=== PATIENT | male | born 1955 | race Caucasian/White ===

== ENCOUNTER → 2016-10-28 | Outpatient (CLI) | payer BC ==
[2016-10-28 08:30] LABS: CHLORIDE,CL 109 mmol/L (98-110); SODIUM,NA 140 mmol/L (136-146)
== END ==
LOC: MW.CHFP 07:42
PROVIDERS: ATTEND Student in an Organized Health Care Education/Training Program
DX: I10 Essential (primary) hypertension (principal); E78.00 Pure hypercholesterolemia, unspecified
CPT/HCPCS: 36415; 80053; 80061

== ENCOUNTER 2020-11-25 19:09 | Observation (INO) | payer BC, OTHER ==
[2020-11-25] MEDS ORDERED: Ondansetron 4 MG Tab.DIS PO ONE (19:23)
[2020-11-25] MEDS ORDERED: HYDROmorphone 1 MG/ML Syringe IM ONE (19:23)
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
[2020-11-25] MEDS ORDERED: Sodium Chloride 0.9% 2.5 ML Syringe FLUSH PRN ×2 (20:25→22:02)
[2020-11-25] MEDS ORDERED: Sodium Chloride 0.9% 10 ML Syringe FLUSH PRN ×2 (20:25→22:02)
[2020-11-25] MEDS ORDERED: Sodium Chloride 0.9% 1,000 ML IV ONE (20:25)
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
[2020-11-25 20:57] LABS: BLOOD UREA NITROGEN,BUN 19 mg/dL (7.0-18.0); CARBON DIOXIDE,CO2 26.2 mmol/L (21.0-32.0); CHLORIDE,CL 102 mmol/L (98-107); GLUCOSE RANDOM 111 mg/dL (74-106); POTASSIUM,K 4.6 mmol/L (3.5-5.1); SODIUM,NA 139 mmol/L (136-148)
[2020-11-25] MEDS ORDERED: LORazepam 2 MG/ML SDV ONE (20:59)
[2020-11-25] MEDS ORDERED: HYDROmorphone 1 MG/ML Syringe ONE (20:59)
[2020-11-25] MEDS ORDERED: Lidocaine 1% 50 ML MDV ONE (21:02)
[2020-11-25] MEDS ORDERED: HYDROmorphone 1 MG/ML Syringe IVPUSH ONE (21:51)
[2020-11-25] MEDS ORDERED: LORazepam 2 MG/ML SDV IVPUSH ONE (21:51)
[2020-11-25] MEDS ORDERED: Lidocaine 1% 10 ML MDV INJECT ONE (21:53)
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
[2020-11-25] MEDS ORDERED: Sodium Chloride 0.9% 10 ML SDV IV PRN (22:02)
[2020-11-25] MEDS ORDERED: Ondansetron 4 MG/2 ML SDV IVPUSH PRN (22:02)
[2020-11-25] MEDS ORDERED: HYDROmorphone 1 MG/ML Syringe IVPUSH PRN (22:02)
--- NOTE | 2020-11-25 22:46 | CR ---
HISTORY: Chest tube placement. COMPARISON: 11/25/2020. FINDINGS: Right-sided chest tube placement. Small amount of subcutaneous air in the right lateral chest. There is expansion of the right lung. No significant pneumothorax identified. Minimal airspace opacity in the right lower lobe Heart size and pulmonary vascularity within normal limits. Dictated by Lucille Toure MD @ 11/25/2020 10:44:[address] Lucille Toure @ Nov 25 2020 10:44PM
[2020-11-25] MEDS: Ketorolac 30 MG/ML SDV IVPUSH SCH (23:37)
[2020-11-25] MEDS: Acetaminophen 325 MG Tab PO SCH (23:39)
[2020-11-25] MEDS: Sodium Chloride 0.9% 1,000 ML IV SCH (23:57)
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
[2020-11-26] MEDS: Ketorolac 30 MG/ML SDV IVPUSH SCH ×3 (04:40→16:09)
[2020-11-26] MEDS: Acetaminophen 325 MG Tab PO SCH ×4 (04:41→22:22)
--- NOTE | 2020-11-26 07:10 | CR ---
INDICATION: Pneumothorax. COMPARISON: Chest x-ray dated 25 Nov 2020. FINDINGS: A single portable chest x-ray shows a normal cardiac silhouette. The lungs show bibasilar atelectasis. No pneumothorax. Right-sided chest tube. IMPRESSION: 1. Bibasilar atelectasis. 2. No pneumothorax. Dictated by Milton Haas MD @ 11/26/2020 7:09:[address] Milton Haas @ Nov 26 2020 7:09AM
[2020-11-26] MEDS: Polyethylene Glycol 3350 Powder 17 GM Packet PO SCH (09:22)
--- NOTE | 2020-11-26 09:24 | PCM.SURGPN ---
- General Info Date of Service: 11/26/20 Date of Surgery/Procedure: 11/25/20 POD#: 1 Functional Status: Reports: Pain Controlled, Ambulating - Review of Systems General: Reports: No Symptoms HEENT: Reports: No Symptoms Pulmonary: Reports: Pleuritic Chest Pain Cardiovascular: Reports: No Symptoms Gastrointestinal: Reports: No Symptoms Genitourinary: Reports: No Symptoms Musculoskeletal: Reports: No Symptoms Skin: Reports: No Symptoms - Patient Data Vitals - Most Recent: Last Vital Signs Temp 36.4 C 11/26/20 04:06 Pulse 54 L 11/26/20 06:31 Resp 20 11/26/20 04:06 BP 126/62 11/26/20 06:31 Pulse Ox 100 11/26/20 04:06 Weight - Most Recent: 148.325 kg I&O - Last 24 Hours: Intake & Output 11/25/20 11/26/20 11/26/20 22:59 06:59 14:59 Intake Total 345 Output Total 370 Balance -25 Lab Results Last 24 Hrs: Laboratory Results - last 24 hr 11/25/20 11/25/20 11/25/20 Range/Units 20:25 20:25 20:43 WBC 11.95 H (4.0-11.0) K/uL RBC 4.75 (4.50-5.90) M/uL Hgb 15.4 (13.0-17.0) g/dL Hct 45.3 (38.0-50.0) % MCV 95.4 (80.0-98.0) fL MCH 32.4 H (27.0-32.0) pg MCHC 34.0 (31.0-37.0) g/dL RDW Std Deviation 44.1 (28.0-62.0) fl RDW Coeff of Ruma 13 (11.0-15.0) % Plt Count 175 (150-400) K/uL MPV 9.30 (7.40-12.00) fL Neut % (Auto) 78.7 (48.0-80.0) % Lymph % (Auto) 14.8 L (16.0-40.0) % Weld % (Auto) 5.6 (0.0-15.0) % Eos % (Auto) 0.6 (0.0-7.0) % Baso % (Auto) 0.3 (0.0-1.5) % Neut # (Auto) 9.4 H (1.4-5.7) K/uL Lymph # (Auto) 1.8 (0.6-2.4) K/uL Weld # (Auto) 0.7 (0.0-0.8) K/uL Eos # (Auto) 0.1 (0.0-0.7) K/uL Baso # (Auto) 0.0 (0.0-0.1) K/uL Nucleated RBC % 0.0 /100WBC Nucleated RBCs # 0 K/uL INR 1.14 Sodium 139 (136-148) mmol/L Potassium 4.6 (3.5-5.1) mmol/L Chloride 102 (98-107) mmol/L Carbon Dioxide 26.2 (21.0-32.0) mmol/L BUN 19 H (7.0-18.0) mg/dL Creatinine 0.9 (0.8-1.3) mg/dL Est Cr Clr Drug Dosing 94.94 mL/min Estimated GFR (MDRD) > 60.0 ml/min Glucose 111 H (74-106) mg/dL Calcium 8.7 (8.5-10.1) mg/dL Total Bilirubin 0.4 (0.2-1.0) mg/dL AST 31 (15-37) IU/L ALT 31 (14-63) IU/L Alkaline Phosphatase 57 (46-116) U/L Troponin I < 0.050 (0.000-0.056) ng/mL Total Protein 8.7 H (6.4-8.2) g/dL Albumin 4.0 (3.4-5.0) g/dL Globulin 4.7 H (2.6-4.0) g/dL Albumin/Globulin Ratio 0.9 (0.9-1.6) Urine Color Urine Appearance Urine pH (5.0-8.0) Ur Specific [place] (1.001-1.035) Urine Protein (NEGATIVE) mg/dL Urine Glucose (UA) (NEGATIVE) mg/dL Urine Ketones (NEGATIVE) mg/dL Urine Occult Blood (NEGATIVE) Urine Nitrite (NEGATIVE) Urine Bilirubin (NEGATIVE) Urine Urobilinogen (<2.0) EU/dL Ur Leukocyte Esterase (NEGATIVE) SARS-CoV-2 RNA (AMPARO) (NEGATIVE) 11/25/20 11/26/20 Range/Units 20:45 04:35 WBC (4.0-11.0) K/uL RBC (4.50-5.90) M/uL Hgb (13.0-17.0) g/dL Hct (38.0-50.0) % MCV (80.0-98.0) fL MCH (27.0-32.0) pg MCHC (31.0-37.0) g/dL RDW Std Deviation (28.0-62.0) fl RDW Coeff of Ruma (11.0-15.0) % Plt Count (150-400) K/uL MPV (7.40-12.00) fL Neut % (Auto) (48.0-80.0) % Lymph % (Auto) (16.0-40.0) % Weld % (Auto) (0.0-15.0) % Eos % (Auto) (0.0-7.0) % Baso % (Auto) (0.0-1.5) % Neut # (Auto) (1.4-5.7) K/uL Lymph # (Auto) (0.6-2.4) K/uL Weld # (Auto) (0.0-0.8) K/uL Eos # (Auto) (0.0-0.7) K/uL Baso # (Auto) (0.0-0.1) K/uL Nucleated RBC % /100WBC Nucleated RBCs # K/uL INR Sodium (136-148) mmol/L Potassium (3.5-5.1) mmol/L Chloride (98-107) mmol/L Carbon Dioxide (21.0-32.0) mmol/L BUN (7.0-18.0) mg/dL Creatinine (0.8-1.3) mg/dL Est Cr Clr Drug Dosing mL/min Estimated GFR (MDRD) ml/min Glucose (74-106) mg/dL Calcium (8.5-10.1) mg/dL Total Bilirubin (0.2-1.0) mg/dL AST (15-37) IU/L ALT (14-63) IU/L Alkaline Phosphatase (46-116) U/L Troponin I (0.000-0.056) ng/mL Total Protein (6.4-8.2) g/dL Albumin (3.4-5.0) g/dL Globulin (2.6-4.0) g/dL Albumin/Globulin Ratio (0.9-1.6) Urine Color DARK YELLOW Urine Appearance CLEAR Urine pH 5.5 (5.0-8.0) Ur Specific [place] >= 1.030 (1.001-1.035) Urine Protein NEGATIVE (NEGATIVE) mg/dL Urine Glucose (UA) NEGATIVE (NEGATIVE) mg/dL Urine Ketones NEGATIVE (NEGATIVE) mg/dL Urine Occult Blood NEGATIVE (NEGATIVE) Urine Nitrite NEGATIVE (NEGATIVE) Urine Bilirubin NEGATIVE (NEGATIVE) Urine Urobilinogen 0.2 (<2.0) EU/dL Ur Leukocyte Esterase NEGATIVE (NEGATIVE) SARS-CoV-2 RNA (AMPARO) NEGATIVE (NEGATIVE) Med Orders - Current: Current Medications Acetaminophen (Acetaminophen 325 Mg Tab) 650 mg PO Q6H [facility] Last Admin: 11/26/20 04:41 Dose: 650 mg Documented by: Hydromorphone HCl (Hydromorphone 1 Mg/Ml Syringe) 0.5 mg IVPUSH Q1H PRN PRN Reason: Pain (severe 7-10) Last Admin: 11/26/20 06:32 Dose: 0.5 mg Documented by: Sodium Chloride (Normal Saline) 1,000 mls @ 50 mls/hr IV ASDIRECTED [facility] Last Admin: 11/25/20 23:57 Dose: 50 mls/hr Documented by: Ketorolac Tromethamine (Ketorolac 30 Mg/Ml Sdv) 30 mg IVPUSH Q6H [facility] Stop: 11/26/20 16:16 Last Admin: 11/26/20 04:40 Dose: 30 mg Documented by: Ondansetron HCl (Ondansetron 4 Mg/2 Ml Sdv) 4 mg IVPUSH Q6H PRN PRN Reason: Nausea/Vomiting Oxycodone HCl (Oxycodone 5 Mg Tab) 10 mg PO Q4H PRN PRN Reason: Pain (moderate 4-6) Polyethylene Glycol (Polyethylene Glycol 3350 Powder 17 Gm Packet) 17 gm PO DAILY [facility] Sodium Chloride (Sodium Chloride 0.9% 10 Ml Syringe) 10 ml FLUSH ASDIRECTED PRN PRN Reason: Keep Vein Open Sodium Chloride (Sodium Chloride 0.9% 2.5 Ml Syringe) 2.5 ml FLUSH ASDIRECTED PRN PRN Reason: Keep Vein Open Sodium Chloride (Sodium Chloride 0.9% 10 Ml Syringe) 10 ml FLUSH ASDIRECTED PRN PRN Reason: Keep Vein Open Sodium Chloride (Sodium Chloride 0.9% 2.5 Ml Syringe) 2.5 ml FLUSH ASDIRECTED PRN PRN Reason: Keep Vein Open Sodium Chloride (Sodium Chloride 0.9% 10 Ml Sdv) 10 ml IV ASDIRECTED PRN PRN Reason: IV Use Discontinued Medications Hydromorphone HCl (Hydromorphone 1 Mg/Ml Syringe) 1 mg IM ONETIME ONE Stop: 11/25/20 19:24 Last Admin: 11/25/20 19:46 Dose: 1 mg Documented by: Hydromorphone HCl (Hydromorphone 1 Mg/Ml Syringe) Confirm Administered Dose 1 mg .ROUTE .STK-MED ONE Stop: 11/25/20 21:00 Last Admin: 11/25/20 21:56 Dose: Not Given Documented by: Hydromorphone HCl (Hydromorphone 1 Mg/Ml Syringe) 1 mg IVPUSH ONETIME ONE Stop: 11/25/20 21:52 Last Admin: 11/25/20 21:55 Dose: 1 mg Documented by: Sodium Chloride (Normal Saline) 1,000 mls @ 999 mls/hr IV .Bolus ONE Stop: 11/25/20 21:25 Last Admin: 11/25/20 20:36 Dose: 999 mls/hr Documented by: Lidocaine HCl (Lidocaine 1% 50 Ml Mdv) Confirm Administered Dose 50 ml .ROUTE .STK-MED ONE Stop: 11/25/20 21:03 Last Admin: 11/25/20 21:56 Dose: 50 ml Documented by: Lidocaine HCl (Lidocaine 1% 10 Ml Mdv) 50 ml INJECT ONETIME ONE Stop: 11/25/20 21:54 Last Admin: 11/25/20 21:56 Dose: Not Given Documented by: Lorazepam (Lorazepam 2 Mg/Ml Sdv) Confirm Administered Dose 2 mg .ROUTE .STK-MED ONE Stop: 11/25/20 21:00 Last Admin: 11/25/20 21:56 Dose: Not Given Documented by: Lorazepam (Lorazepam 2 Mg/Ml Sdv) 1 mg IVPUSH ONETIME ONE Stop: 11/25/20 21:52 Last Admin: 11/25/20 21:55 Dose: 1 mg Documented by: Ondansetron HCl (Ondansetron 4 Mg Tab.Dis) 4 mg PO ONETIME ONE Stop: 11/25/20 19:24 Last Admin: 11/25/20 19:46 Dose: 4 mg Documented by: - Exam Wound/Incisions: Healing Well, Dressing Dry and Intact General: Alert, Oriented HEENT: Pupils Equal, Pupils Reactive Lungs: Clear to Auscultation, Normal Respiratory Effort, Other (air leak when ta lking or coughing ) Cardiovascular: Regular Rate, Regular Rhythm GI/Abdominal Exam: Soft Sepsis Event Note - Evaluation Sepsis Screening Result: No Definite Risk - Focused Exam Vital Signs: Vital Signs Temp Pulse Resp BP Pulse Ox Pulse Ox 11/26/20 06:31 54 L 126/62 11/26/20 04:06 36.4 C 62 20 139/80 100 11/26/20 00:30 99 11/25/20 23:30 99 11/25/20 23:15 99 11/25/20 23:10 36.5 C 65 20 124/74 98 11/25/20 22:30 36.3 C 64 18 121/65 97 11/25/20 21:45 68 18 131/69 97 11/25/20 21:30 77 20 160/86 H 94 L - Problem List & Annotations (1) Traumatic pneumothorax SNOMED Code(s): 09111209 Code(s): S27.0XXA - TRAUMATIC PNEUMOTHORAX, INITIAL ENCOUNTER Status: Acute Current Visit: Yes Qualifiers: Encounter type: initial encounter Qualified Code(s): S27.0XXA - Traumatic pneumothorax, initial encounter (2) Rib fractures SNOMED Code(s): 0841596 Code(s): S22.49XA - MULTIPLE FRACTURES OF RIBS, UNSP SIDE, INIT FOR CLOS FX Status: Acute Current Visit: Yes Qualifiers: Encounter type: initial encounter Fracture type: closed Laterality: right Qualified Code(s): S22.41XA - Multiple fractures of ribs, right side, initial encounter for closed fracture - Problem List Review Problem List Initiated/Reviewed/Updated: Yes - My Orders Last 24 Hours: Active Orders 24 hr Category Date Time Status Patient Status [ADT] Routine ADT 11/25/20 22:01 Active Cardiac Monitoring [RC] . DIRECTED Care 11/25/20 20:25 Active Chest Tube Management [RC] ASDIRECTED Care 11/25/20 22:12 Active Communication Order [RC] ROUTINE Care 11/25/20 22:11 Active EKG Documentation Completion [RC] AM Care 11/25/20 20:25 Active Head of Bed Elevation [RC] ASDIRECTED Care 11/25/20 22:02 Active Intake and Output [RC] Q12H Care 11/25/20 22:03 Active Notify Provider Vital Signs [RC] PRN Care 11/25/20 22:03 Active Oxygen Therapy [RC] PRN Care 11/25/20 22:01 Active Pulse Oximetry [RC] ASDIRECTED Care 11/25/20 20:25 Active Pulse Oximetry [RC] CONTINUOUS Care 11/25/20 22:04 Active Up With Assistance [RC] ASDIRECTED Care 11/25/20 22:01 Active Vital Signs [RC] Q4H Care 11/25/20 22:01 Active Regular Diet [DIET] Diet 11/25/20 Dinner Active Acetaminophen [TylenoL] Med 11/25/20 22:15 Active 650 mg PO Q6H HYDROmorphone [Dilaudid] Med 11/25/20 22:02 Active 0.5 mg IVPUSH Q1H PRN Ketorolac [Toradol] Med 11/25/20 22:15 Active 30 mg IVPUSH Q6H Ondansetron [Zofran] Med 11/25/20 22:02 Active 4 mg IVPUSH Q6H PRN Sodium Chloride 0.9% [Normal Saline] Med 11/25/20 22:02 Active 10 ml IV ASDIRECTED PRN Sodium Chloride 0.9% [Normal Saline] 1,000 ml Med 11/25/20 22:15 Active IV ASDIRECTED Sodium Chloride 0.9% [Saline Flush] Med 11/25/20 20:25 Active 10 ml FLUSH ASDIRECTED PRN Sodium Chloride 0.9% [Saline Flush] Med 11/25/20 22:02 Active 10 ml FLUSH ASDIRECTED PRN Sodium Chloride 0.9% [Saline Flush] Med 11/25/20 20:25 Active 2.5 ml FLUSH ASDIRECTED PRN Sodium Chloride 0.9% [Saline Flush] Med 11/25/20 22:02 Active 2.5 ml FLUSH ASDIRECTED PRN oxyCODONE Med 11/25/20 22:10 Active 10 mg PO Q4H PRN polyethylene glycoL 3350 [MiraLAX] Med 11/26/20 09:00 Active 17 gm PO DAILY Peripheral IV Insertion Adult [OM.PC] Urgent Oth 11/25/20 22:02 Ordered Saline Lock Insert [OM.PC] Stat Oth 11/25/20 20:25 Ordered Resuscitation Status Routine Resus Stat 11/25/20 22:01 Ordered Medication Orders Acetaminophen (Acetaminophen 325 Mg Tab) 650 mg PO Q6H [facility] Last Admin: 11/26/20 04:41 Dose: 650 mg Documented by: Admin: 11/25/20 23:39 Dose: 650 mg Documented by: RIGO Hydromorphone HCl (Hydromorphone 1 Mg/Ml Syringe) 0.5 mg IVPUSH Q1H PRN PRN Reason: Pain (severe 7-10) Last Admin: 11/26/20 06:32 Dose: 0.5 mg Documented by: RIGO Sodium Chloride (Normal Saline) 1,000 mls @ 50 mls/hr IV ASDIRECTED [facility] Last Admin: 11/25/20 23:57 Dose: 50 mls/hr Documented by: RIGO Ketorolac Tromethamine (Ketorolac 30 Mg/Ml Sdv) 30 mg IVPUSH Q6H [facility] Stop: 11/26/20 16:16 Last Admin: 11/26/20 04:40 Dose: 30 mg Documented by: Admin: 11/25/20 23:37 Dose: 30 mg Documented by: RIGO Ondansetron HCl (Ondansetron 4 Mg/2 Ml Sdv) 4 mg IVPUSH Q6H PRN PRN Reason: Nausea/Vomiting Oxycodone HCl (Oxycodone 5 Mg Tab) 10 mg PO Q4H PRN PRN Reason: Pain (moderate 4-6) Polyethylene Glycol (Polyethylene Glycol 3350 Powder 17 Gm Packet) 17 gm PO DAILY [facility] Sodium Chloride (Sodium Chloride 0.9% 10 Ml Syringe) 10 ml FLUSH ASDIRECTED PRN PRN Reason: Keep Vein Open Sodium Chloride (Sodium Chloride 0.9% 2.5 Ml Syringe) 2.5 ml FLUSH ASDIRECTED PRN PRN Reason: Keep Vein Open Sodium Chloride (Sodium Chloride 0.9% 10 Ml Syringe) 10 ml FLUSH ASDIRECTED PRN PRN Reason: Keep Vein Open Sodium Chloride (Sodium Chloride 0.9% 2.5 Ml Syringe) 2.5 ml FLUSH ASDIRECTED PRN PRN Reason: Keep Vein Open Sodium Chloride (Sodium Chloride 0.9% 10 Ml Sdv) 10 ml IV ASDIRECTED PRN PRN Reason: IV Use - Plan Plan (Free Text/Narrative):: Patient stable overnight and CXR this am shows complete re-expansion. With talking or coughing there is a small air leak. Will keep on suction today. Will start lovenox for DVT px. No IS or CPAP use until after chest tube out.
[2020-11-26] MEDS: oxyCODONE 5 MG Tab PO PRN ×3 (10:33→20:59)
[2020-11-26] MEDS: Enoxaparin 40 MG/0.4 ML Syringe SUBCUT SCH (10:34)
[2020-11-26] MEDS: Sodium Chloride 0.9% 1,000 ML IV SCH (16:13)
[2020-11-27] MEDS: oxyCODONE 5 MG Tab PO PRN ×5 (01:14→23:07)
[2020-11-27] MEDS: Acetaminophen 325 MG Tab PO SCH ×4 (04:20→23:06)
--- NOTE | 2020-11-27 08:41 | PCM.SURGPN ---
- General Info Date of Service: 11/27/20 Date of Surgery/Procedure: 11/25/20 POD#: 2 Post-Op Diagnosis: Traumatic pneumothroax Functional Status: Reports: Pain Controlled, Tolerating Diet, Ambulating, Urinating - Review of Systems General: Reports: No Symptoms HEENT: Reports: No Symptoms Pulmonary: Reports: No Symptoms Cardiovascular: Reports: No Symptoms Gastrointestinal: Reports: No Symptoms Genitourinary: Reports: No Symptoms Musculoskeletal: Reports: No Symptoms Skin: Reports: No Symptoms - Patient Data Vitals - Most Recent: Last Vital Signs Temp 36.9 C 11/27/20 04:27 Pulse 62 11/27/20 04:27 Resp 20 11/27/20 04:27 BP 141/80 H 11/27/20 04:27 Pulse Ox 99 11/27/20 04:27 Weight - Most Recent: 148.325 kg I&O - Last 24 Hours: Intake & Output 11/26/20 11/27/20 11/27/20 22:59 06:59 14:59 Intake Total 1000 1545 Output Total 55 380 Balance 945 1165 Med Orders - Current: Current Medications Acetaminophen (Acetaminophen 325 Mg Tab) 650 mg PO Q6H [facility] Last Admin: 11/27/20 04:20 Dose: 650 mg Documented by: Enoxaparin Sodium (Enoxaparin 40 Mg/0.4 Ml Syringe) 40 mg SUBCUT Q24H [facility] Last Admin: 11/26/20 10:34 Dose: 40 mg Documented by: Hydromorphone HCl (Hydromorphone 1 Mg/Ml Syringe) 0.5 mg IVPUSH Q1H PRN PRN Reason: Pain (severe 7-10) Last Admin: 11/26/20 06:32 Dose: 0.5 mg Documented by: Ondansetron HCl (Ondansetron 4 Mg/2 Ml Sdv) 4 mg IVPUSH Q6H PRN PRN Reason: Nausea/Vomiting Oxycodone HCl (Oxycodone 5 Mg Tab) 10 mg PO Q4H PRN PRN Reason: Pain (moderate 4-6) Last Admin: 11/27/20 05:52 Dose: 10 mg Documented by: Polyethylene Glycol (Polyethylene Glycol 3350 Powder 17 Gm Packet) 17 gm PO DAILY [facility] Last Admin: 11/26/20 09:22 Dose: 17 gm Documented by: Sodium Chloride (Sodium Chloride 0.9% 10 Ml Syringe) 10 ml FLUSH ASDIRECTED PRN PRN Reason: Keep Vein Open Sodium Chloride (Sodium Chloride 0.9% 2.5 Ml Syringe) 2.5 ml FLUSH ASDIRECTED PRN PRN Reason: Keep Vein Open Sodium Chloride (Sodium Chloride 0.9% 10 Ml Syringe) 10 ml FLUSH ASDIRECTED PRN PRN Reason: Keep Vein Open Sodium Chloride (Sodium Chloride 0.9% 2.5 Ml Syringe) 2.5 ml FLUSH ASDIRECTED PRN PRN Reason: Keep Vein Open Sodium Chloride (Sodium Chloride 0.9% 10 Ml Sdv) 10 ml IV ASDIRECTED PRN PRN Reason: IV Use Discontinued Medications Hydromorphone HCl (Hydromorphone 1 Mg/Ml Syringe) 1 mg IM ONETIME ONE Stop: 11/25/20 19:24 Last Admin: 11/25/20 19:46 Dose: 1 mg Documented by: Hydromorphone HCl (Hydromorphone 1 Mg/Ml Syringe) Confirm Administered Dose 1 mg .ROUTE .STK-MED ONE Stop: 11/25/20 21:00 Last Admin: 11/25/20 21:56 Dose: Not Given Documented by: Hydromorphone HCl (Hydromorphone 1 Mg/Ml Syringe) 1 mg IVPUSH ONETIME ONE Stop: 11/25/20 21:52 Last Admin: 11/25/20 21:55 Dose: 1 mg Documented by: Sodium Chloride (Normal Saline) 1,000 mls @ 999 mls/hr IV .Bolus ONE Stop: 11/25/20 21:25 Last Admin: 11/25/20 20:36 Dose: 999 mls/hr Documented by: Sodium Chloride (Normal Saline) 1,000 mls @ 50 mls/hr IV ASDIRECTED [facility] Last Admin: 11/26/20 16:13 Dose: 50 mls/hr Documented by: Ketorolac Tromethamine (Ketorolac 30 Mg/Ml Sdv) 30 mg IVPUSH Q6H [facility] Stop: 11/26/20 16:16 Last Admin: 11/26/20 16:09 Dose: 30 mg Documented by: Lidocaine HCl (Lidocaine 1% 50 Ml Mdv) Confirm Administered Dose 50 ml .ROUTE .STK-MED ONE Stop: 11/25/20 21:03 Last Admin: 11/25/20 21:56 Dose: 50 ml Documented by: Lidocaine HCl (Lidocaine 1% 10 Ml Mdv) 50 ml INJECT ONETIME ONE Stop: 11/25/20 21:54 Last Admin: 11/25/20 21:56 Dose: Not Given Documented by: Lorazepam (Lorazepam 2 Mg/Ml Sdv) Confirm Administered Dose 2 mg .ROUTE .STK-MED ONE Stop: 11/25/20 21:00 Last Admin: 11/25/20 21:56 Dose: Not Given Documented by: Lorazepam (Lorazepam 2 Mg/Ml Sdv) 1 mg IVPUSH ONETIME ONE Stop: 11/25/20 21:52 Last Admin: 11/25/20 21:55 Dose: 1 mg Documented by: Ondansetron HCl (Ondansetron 4 Mg Tab.Dis) 4 mg PO ONETIME ONE Stop: 11/25/20 19:24 Last Admin: 11/25/20 19:46 Dose: 4 mg Documented by: - Exam Wound/Incisions: Healing Well, Dressing Dry and Intact General: Alert, Oriented HEENT: Pupils Equal, Pupils Reactive Lungs: Clear to Auscultation, Normal Respiratory Effort, Other (Output from chest tube is serosanguinous. No airleak with cough or talking today. 155ml out in last 24 hours. ) Cardiovascular: Regular Rate, Regular Rhythm GI/Abdominal Exam: Soft, Non-Tender, No Distention, No Mass Skin: Warm, Dry, Intact Neurological: No New Focal Deficit Psy/Mental Status: Alert, Normal Affect, Normal Mood Sepsis Event Note - Evaluation Sepsis Screening Result: No Definite Risk - Focused Exam Vital Signs: Vital Signs Temp Pulse Resp BP Pulse Ox 11/27/20 04:27 36.9 C 62 20 141/80 H 99 11/27/20 00:39 36.4 C 61 18 128/74 100 11/27/20 00:38 99 - Problem List & Annotations (1) Traumatic pneumothorax SNOMED Code(s): 48110308 Code(s): S27.0XXA - TRAUMATIC PNEUMOTHORAX, INITIAL ENCOUNTER Status: Acute Current Visit: Yes Qualifiers: Encounter type: initial encounter Qualified Code(s): S27.0XXA - Traumatic pneumothorax, initial encounter (2) Rib fractures SNOMED Code(s): 2576869 Code(s): S22.49XA - MULTIPLE FRACTURES OF RIBS, UNSP SIDE, INIT FOR CLOS FX Status: Acute Current Visit: Yes Qualifiers: Encounter type: initial encounter Fracture type: closed Laterality: right Qualified Code(s): S22.41XA - Multiple fractures of ribs, right side, initial encounter for closed fracture - Problem List Review Problem List Initiated/Reviewed/Updated: Yes - My Orders Last 24 Hours: Active Orders 24 hr Category Date Time Status Chest 1V Frontal [CR] Timed Exams 11/27/20 14:00 Ordered Enoxaparin [Lovenox] Med 11/26/20 09:30 Active 40 mg SUBCUT Q24H Metoprolol Tartrate [Lopressor] Med 11/27/20 18:00 Ordered 75 mg PO QPM polyethylene glycoL 3350 [MiraLAX] Med 11/26/20 09:00 Active 17 gm PO DAILY Medication Orders Acetaminophen (Acetaminophen 325 Mg Tab) 650 mg PO Q6H [facility] Last Admin: 11/27/20 04:20 Dose: 650 mg Documented by: Admin: 11/26/20 22:22 Dose: 650 mg Documented by: Admin: 11/26/20 16:10 Dose: 650 mg Documented by: Admin: 11/26/20 09:23 Dose: 650 mg Documented by: Admin: 11/26/20 04:41 Dose: 650 mg Documented by: Admin: 11/25/20 23:39 Dose: 650 mg Documented by: RIGO Enoxaparin Sodium (Enoxaparin 40 Mg/0.4 Ml Syringe) 40 mg SUBCUT Q24H [facility] Last Admin: 11/26/20 10:34 Dose: 40 mg Documented by: DANITZA Hydromorphone HCl (Hydromorphone 1 Mg/Ml Syringe) 0.5 mg IVPUSH Q1H PRN PRN Reason: Pain (severe 7-10) Last Admin: 11/26/20 06:32 Dose: 0.5 mg Documented by: RIGO Ondansetron HCl (Ondansetron 4 Mg/2 Ml Sdv) 4 mg IVPUSH Q6H PRN PRN Reason: Nausea/Vomiting Oxycodone HCl (Oxycodone 5 Mg Tab) 10 mg PO Q4H PRN PRN Reason: Pain (moderate 4-6) Last Admin: 11/27/20 05:52 Dose: 10 mg Documented by: Admin: 11/27/20 01:14 Dose: 10 mg Documented by: Admin: 11/26/20 20:59 Dose: 10 mg Documented by: Admin: 11/26/20 16:10 Dose: 10 mg Documented by: Admin: 11/26/20 10:33 Dose: 10 mg Documented by: DANITZA Polyethylene Glycol (Polyethylene Glycol 3350 Powder 17 Gm Packet) 17 gm PO DAILY [facility] Last Admin: 11/26/20 09:22 Dose: 17 gm Documented by: DANITZA Sodium Chloride (Sodium Chloride 0.9% 10 Ml Syringe) 10 ml FLUSH ASDIRECTED PRN PRN Reason: Keep Vein Open Sodium Chloride (Sodium Chloride 0.9% 2.5 Ml Syringe) 2.5 ml FLUSH ASDIRECTED PRN PRN Reason: Keep Vein Open Sodium Chloride (Sodium Chloride 0.9% 10 Ml Syringe) 10 ml FLUSH ASDIRECTED PRN PRN Reason: Keep Vein Open Sodium Chloride (Sodium Chloride 0.9% 2.5 Ml Syringe) 2.5 ml FLUSH ASDIRECTED PRN PRN Reason: Keep Vein Open Sodium Chloride (Sodium Chloride 0.9% 10 Ml Sdv) 10 ml IV ASDIRECTED PRN PRN Reason: IV Use - Plan Plan (Free Text/Narrative):: Patient placed on waterseal this morning. Will wait 6 hours and then take a chest x-ray. If the chest x-ray appears normal and the output over the course of the day is minimal we'll pull the chest tube this evening. I explained to the patient that should he have increasing chest discomfort or shortness of breath he should let his nurse know right away and we will put him back on suction. Encouraged the patient to be out of bed more than in bed. Discontinued oxygen therapy and the patient can start incentive spirometry today. If the chest tube was pulled tonight will get a follow-up chest x-ray in the morning and okay to discharge after that.
[2020-11-27] MEDS: Enoxaparin 40 MG/0.4 ML Syringe SUBCUT SCH (09:00)
[2020-11-27] MEDS: Polyethylene Glycol 3350 Powder 17 GM Packet PO SCH (09:00)
--- NOTE | 2020-11-27 15:38 | CR ---
Indication: Chest tube on water seal Technique: Chest 1 view Comparison: November 26, 2020 Findings/Impression: Cardiovascular and mediastinum: Heart size and vasculature are normal in caliber and appearance. Lungs and pleural space: Right-sided chest tube unchanged in position. No pneumothorax. Mild bibasilar atelectasis. Lungs and pleural spaces otherwise clear. Bones and soft tissues: No acute findings. Dictated by Yovany Oliva MD @ 11/27/2020 3:36:[address] Yovany Oliva @ Nov 27 2020 3:36PM
[2020-11-27] MEDS ORDERED: Metoprolol Tartrate 25 MG Tab PO SCH (18:00)
[2020-11-28] MEDS: oxyCODONE 5 MG Tab PO PRN ×2 (04:42→10:21)
[2020-11-28] MEDS: Acetaminophen 325 MG Tab PO SCH ×2 (04:43→10:20)
--- NOTE | 2020-11-28 06:45 | CR ---
Indication: Status post chest tube removal Comparison: Single view chest November 27, 2020 Technique: Single AP view chest Findings: There is hyperinflation and chronic interstitial change again seen. There is persistent likely left basilar pleural effusion and mild pulmonary vascular congestion. There is interval removal of right-sided thoracostomy tube with trace right apical pneumothorax identified. Place Stable cardiac silhouette. Stable appearance of the bony thorax. Impression: Interval removal of right-sided thoracostomy tube cyst with a trace residual right apical pneumothorax. Persistent pulmonary edema and likely left basilar pleural effusion. Dictated by Lionel Chirinos MD @ 11/28/2020 6:43:[address] Lionel Chirinos @ Nov 28 2020 6:43AM
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
[2020-11-28] MEDS: Polyethylene Glycol 3350 Powder 17 GM Packet PO SCH (08:26)
[2020-11-28] MEDS: Enoxaparin 40 MG/0.4 ML Syringe SUBCUT SCH (08:31)
== END 2020-11-28 11:30 | disposition home or self-care (01) ==
LOC: MW.ED 19:09 → MW.MS 21:53
PROVIDERS: ADMIT Surgery; ATTEND Surgery
DX: S27.0XXA Traumatic pneumothorax, initial encounter (principal); S22.41XA Multiple fractures of ribs, right side, initial encounter for closed fracture; I10 Essential (primary) hypertension; Z79.899 Other long term (current) drug therapy; Z98.890 Other specified postprocedural states; Z01.812 Encounter for preprocedural laboratory examination; Z20.822 Contact with and (suspected) exposure to COVID-19; Z88.0 Allergy status to penicillin; V27 Motorcycle rider injured in collision with fixed or stationary object
CPT/HCPCS: 32551; 36415; 71045; 71045-26; 71250; 71250-26; 80053; 81003; 84484; 85025; 85610; 93005; 96372; 96374; 96375; 96376; 99285-25; A9270-GY; G0378; J1170; J1650; J1885; J2001; J2060; J7030; U0002

== ENCOUNTER 2023-07-04 08:25 | Day surgery (SDC) | payer BC ==
[~2023-07-04 08:25] MED LIST: Lactated Ringers 1,000 ML IV SCH
[2023-07-04] MEDS ORDERED: Lidocaine 2% 5 ML SDV ONE (09:22)
[2023-07-04] MEDS ORDERED: Propofol 200 MG/20 ML SDV ONE ×2 (09:22→09:57)
[2023-07-04] MEDS ORDERED: Lactated Ringers 1,000 ML IV SCH (10:30)
== END 2023-07-04 10:40 | disposition home or self-care (01) ==
LOC: MW.SDS 08:25
PROVIDERS: ATTEND Surgery
DX: D12.6 Benign neoplasm of colon, unspecified (principal); K62.1 Rectal polyp; I11.9 Hypertensive heart disease without heart failure; E78.2 Mixed hyperlipidemia; F41.9 Anxiety disorder, unspecified; F32.A Depression, unspecified; E66.01 Morbid (severe) obesity due to excess calories; Z68.41 Body mass index [BMI] 40.0-44.9, adult; Z86.16 Personal history of COVID-19; Z87.891 Personal history of nicotine dependence; Z79.899 Other long term (current) drug therapy; Z88.0 Allergy status to penicillin
CPT/HCPCS: 45380; 45385; J2704; J7120; 00811; J3490

== ENCOUNTER 2024-04-12 10:58 | Day surgery (SDC) | payer BC ==
[~2024-04-12 10:58] MED LIST changes: +Albuterol 0.083% 2.5 MG/3 ML Neb Soln NEB PRN; +Bupivacaine 0.5% 30 ML SDV ONE; +HYDROmorphone 1 MG/ML Syringe IVPUSH PRN; -Lactated Ringers 1,000 ML IV SCH; +Metoclopramide 10 MG/2 ML SDV IVPUSH PRN; +Morphine 2 MG/ML SYRINGE IVPUSH PRN; +Naloxone 0.4 MG/ML SDV IVPUSH PRN; +Ondansetron 4 MG/2 ML SDV IVPUSH PRN; +Phenylephrine HCl In 0.9% NaCl 1 MG/10 ML Syringe IVPUSH PRN; +ceFAZolin 1 GM Vial ONE; +fentaNYL 50 MCG/ML SDV IVPUSH PRN
[2024-04-12] MEDS ORDERED: Lidocaine 2% 5 ML SDV ONE (11:11)
[2024-04-12] MEDS ORDERED: fentaNYL 100 MCG/2 ML SDV ONE ×2 (11:12→12:26)
[2024-04-12] MEDS ORDERED: Propofol 200 MG/20 ML SDV ONE (11:12)
[2024-04-12] MEDS ORDERED: Midazolam 1 MG/ML 2 ML SDV ONE (11:12)
[2024-04-12] MEDS: Lactated Ringers 1,000 ML IV SCH (11:39)
[2024-04-12] MEDS ORDERED: Glycopyrrolate 0.2 MG/ML SDV ONE (12:10)
[2024-04-12] MEDS ORDERED: Ondansetron 4 MG/2 ML SDV ONE (12:13)
[2024-04-12] MEDS ORDERED: Ketorolac 30 MG/ML SDV ONE (12:27)
[2024-04-12] MEDS ORDERED: Acetaminophen/HYDROcodone 325-5 MG Tab PO PRN (13:04)
[2024-04-12] MEDS ORDERED: Lactated Ringers 1,000 ML IV SCH (13:15)
== END 2024-04-12 13:40 | disposition home or self-care (01) ==
LOC: MW.SDS 10:58
PROVIDERS: ATTEND Surgery
DX: L02.211 Cutaneous abscess of abdominal wall (principal); I11.9 Hypertensive heart disease without heart failure; F41.9 Anxiety disorder, unspecified; K21.9 Gastro-esophageal reflux disease without esophagitis; E78.2 Mixed hyperlipidemia; F32.A Depression, unspecified; E66.01 Morbid (severe) obesity due to excess calories; Z68.39 Body mass index [BMI] 39.0-39.9, adult
CPT/HCPCS: 10061; J0665; J1885; J2250; J2405; J2704; J3010; J7120; 00400; J0690; J3490